=== PATIENT | male | born 1955 | race Caucasian/White ===

== ENCOUNTER 2017-01-07 13:55 | Emergency (ER) | payer OTHER ==
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
[2017-01-07 14:46] VITALS: BP 183/107
--- NOTE | 2017-01-07 14:46 | CT ---
EXAMINATION: Non contrast CT head. Coronal and sagittal reformats. HISTORY: Pain FINDINGS: No evidence of intra or extra axial hemorrhage, mass, midline shift, hydrocephalus or edema. No hypoattenuation changes in the major vascular territories to suggest acute infarct. No abnormal intracranial calcifications are detected. No evidence of substantial vascular calcifica tions. Moderate mucosal thickening noted within the right maxillary sinus with opacification of a few ethmo id air cells. Pituitary fossa appears unremarkable. The orbits and globes are symmetric. Calvarium is intact. No evidence of skull fracture. IMPRESSION: No acute intracranial findings.
--- NOTE | 2017-01-07 15:00 | CT ---
EXAMINATION: CT cervical spine HISTORY: Pain COMPARISON: None TECHNIQUE: Axial CT images obtained through the cervical spine without contrast. Coronal and sagitta l reconstructions obtained. FINDINGS: The cervical spinal alignment is normal. The vertebral body heights and disc spaces appear well-maintained. There is no fracture or acute osseous abnormality. Bone mineralization appears mil dly osteopenic. Mild joint space narrowing is noted at C5-C6 and C6-C7. Mild neural foraminal stenos is is noted at C5-C6 and C6-7 bilaterally. No significant osseous spinal canal stenosis. Mild vascul ar calcifications. Mild biapical scarring. IMPRESSION: 1. No acute osseous abnormality identified.
== END 2017-01-07 15:08 | disposition home or self-care (01) ==
LOC: MW.ED 13:55
DX: M79.1 Myalgia (principal); V49.88XA Car occupant (driver) (passenger) injured in other specified transport accidents, initial encounter; Y93.89 Activity, other specified; Y92.410 Unspecified street and highway as the place of occurrence of the external cause; Z79.899 Other long term (current) drug therapy
CPT/HCPCS: 36415; 70450; 72125; 85025; 99284; G0390; 99282

== ENCOUNTER 2017-07-03 08:02 | Emergency (ER) | payer OTHER ==
[2017-07-03 08:37] VITALS: BP 125/68
--- NOTE | 2017-07-03 08:46 | EDM.PDOC ---
ED HPI GENERAL MEDICAL PROBLEM - General Chief Complaint: Lower Extremity Injury/Pain Stated Complaint: PAIN IN LET ANKLE Time Seen by Provider: 07/03/17 08:40 - History of Present Illness INITIAL COMMENTS - FREE TEXT/NARRATIVE: HISTORY AND PHYSICAL: History of present illness: The patient is a 62-year-old male with no stated medical problems who presents to the ER today history of pain at his left heel left ankle area laterally without any known history of injury. The patient states that he does wear steel toed boots for work does a lot of walking and with a lot of pressure on his feet but he didn't notice any specific injury. It hurt 2 days ago but seemed to get worse today and he took Tylenol today but no medications prior to this morning. Patient denies any proximal calf knee thigh pain or hip pain and has no systemic complaints. He specifically states it hurts deep in his heel area and then up to the lateral ankle. Review of systems: As per history of present illness and below otherwise all systems reviewed and negative. Past medical history: As per history of present illness and as reviewed below otherwise noncontributory. Surgical history: As per history of present illness and as reviewed below otherwise noncontributory. Social history: No reported history of drug or alcohol abuse. Family history: As per history of present illness and as reviewed below otherwise noncontributory. Physical exam: Gen.: Well-developed well-nourished thin man who is nontoxic and vital signs have been reviewed by me HEENT: Atraumatic, normocephalic, negative for conjunctival pallor or scleral icterus, mucous membranes moist, throat clear, neck supple, nontender, trachea midline. Lungs: Clear to auscultation, breath sounds equal bilaterally, chest nontender. Heart: S1S2, regular rate and rhythm no overt murmurs Abdomen: Soft, nondistended, nontender. NABS Pelvis: Stable nontender. No lateral hip tenderness Genitourinary: Deferred. Rectal: Deferred. Extremities: Atraumatic appearing overall was full range of motion of all extremities but there is specific tenderness at palpation of the left heel area and the lateral ankle without any swelling or erythema warmth ecchymosis or soft tissue changes. There are no palpable bony deformities in this area. Distally there is no neurovascular changes or swelling. The legs are, negative for cords or calf pain. Neurovascular unremarkable. Neuro: Awake, alert, oriented. Cranial nerves II through XII unremarkable. Cerebellum unremarkable. Motor and sensory unremarkable throughout. Exam nonfocal. Diagnostics: X-ray left foot and ankle Therapeutics: Stevie bandage Impression: Left heel/foot and ankle pain Definitive disposition and diagnosis as appropriate pending reevaluation and review of above. left ankle Pain Score (Numeric/FACES): 4 - Related Data Allergies Allergy/AdvReac Type Severity Reaction Status Date / Time No Known Allergies Allergy Verified 07/03/17 08:34 Home Meds: Home Meds Hydrochlorothiazide 50 mg PO DAILY 01/07/17 [History] Lisinopril [Zestril] 2.5 mg PO DAILY 01/07/17 [History] Past Medical History Cardiovascular History: Reports: Hypertension Social & Family History - Family History Family Medical History: Noncontributory - Tobacco Use Smoking Status *Q: Current Every Day Smoker Years of Tobacco use: 30 Packs/Tins Daily: 1 - Alcohol Use Days Per Week of Alcohol Use: 3 Number of Drinks Per Day: 3 Total Drinks Per Week: 9 - Recreational Drug Use Recreational Drug Use: No Review of Systems - Review of Systems Review Of Systems: ROS reveals no pertinent complaints other than HPI. ED EXAM, GENERAL - Physical Exam Exam: See Below (See dictation) Course - Vital Signs Last Recorded V/S: Last Vital Signs Temp 36.7 C 07/03/17 08:35 Pulse 68 07/03/17 08:35 Resp 18 07/03/17 08:35 BP 125/68 07/03/17 08:35 Pulse Ox 97 07/03/17 08:35 - Orders/Labs/Meds Orders: Active Orders 24 hr Category Date Time Status DME for Discharge [COMM] Stat Oth 07/03/17 09:40 Ordered Departure - Departure Time of Disposition: 09:42 Disposition: Home, Self-Care 01 Condition: Good Clinical Impression: Left foot pain Left ankle pain Qualifiers: Chronicity: acute Qualified Code(s): M25.572 - Pain in left ankle and joints of left foot - Discharge Information Referrals: Bartolome Sanchez MD [Primary Care Provider] - Forms: ED Department Discharge Additional Instructions: The following information is given to patients seen in the emergency department who are being discharged to home. This information is to outline your options for follow-up care. We provide all patients seen in our emergency department with a follow-up referral. The need for follow-up, as well as the timing and circumstances, are variable depending upon the specifics of your emergency department visit. If you don't have a primary care physician on staff, we will provide you with a referral. We always advise you to contact your personal physician following an emergency department visit to inform them of the circumstance of the visit and for follow-up with them and/or the need for any referrals to a consulting specialist. The emergency department will also refer you to a specialist when appropriate. This referral assures that you have the opportunity for followup care with a specialist. All of these measure are taken in an effort to provide you with optimal care, which includes your followup. Under all circumstances we always encourage you to contact your private physician who remains a resource for coordinating your care. When calling for followup care, please make the office aware that this follow-up is from your recent emergency room visit. If for any reason you are refused follow-up, please contact the [facility] emergency department at and ask to speak to the emergency department charge nurse. [address] [place] [address] [facility]- Podiatry [address] [place] [id number] Fax: [phone] Dr Whitney Sanchez [address] [place] [id number] Please follow-up with your provider at [facility] or one of our foot and ankle specialist using resources given to above. Ice and elevate the area after work and activities and use Stevie during the daytime for support and to reduce swelling. Use [id number] ibuprofen 600-800 mg every 6-8 hours or Aleve for pain. Return to ER as needed and as discussed - My Orders Last 24 Hours: My Active Orders 07/03/17 09:40 DME for Discharge [COMM] Stat - Assessment/Plan Last 24 Hours: My Active Orders 07/03/17 09:40 DME for Discharge [COMM] Stat
--- NOTE | 2017-07-03 09:30 | CR ---
EXAMINATION: Left foot and left ankle HISTORY: Pain COMPARISON: None TECHNIQUE: 2 views of the left foot and 3 views of the left ankle FINDINGS: There is no acute osseous abnormality, dislocation, or fracture. Ankle mortise and talar do me are preserved. No focal soft tissue swelling. Bone mineralization is normal. No foreign body. IMPRESSION: Grossly unremarkable left foot and left ankle.
== END 2017-07-03 10:04 | disposition home or self-care (01) ==
LOC: MW.ED 08:02
DX: M25.572 Pain in left ankle and joints of left foot (principal); I10 Essential (primary) hypertension; F17.210 Nicotine dependence, cigarettes, uncomplicated; Z79.899 Other long term (current) drug therapy
CPT/HCPCS: 73610-26-LT; 73610-LT; 73620-26-LT; 73620-LT; 99283